=== PATIENT | female | born 1940 | race Caucasian/White ===

== ENCOUNTER 2017-10-20 10:42 | Day surgery (SDC) | payer MEDICARE, OTHER ==
[~2017-10-20 10:42] MED LIST: Lactated Ringers 1,000 ML IV SCH; Lidocaine 1%/Sod Bicarbonate in NS 8.4% 1 ML Syringe IDERM PRN; Sodium Chloride 0.9% 10 ML Syringe FLUSH PRN
--- NOTE | 2017-10-20 11:34 | PCM.PREANE ---
Preanesthetic Assessment - Anesthesia/Transfusion/Family Hx Anesthesia History: Prior Anesthesia Without Reaction Family History of Anesthesia Reaction: No Transfusion History: No Prior Transfusion(s) - Review of Systems General: No Symptoms, Other (BMI 38) Pulmonary: Other (sleep apnea with CPAP, ) Cardiovascular: Other (HTN, Increased cholesterol) Gastrointestinal: Other (GERD on meds--no current symptoms) Neurological: No Symptoms Other: Reports: Diabetes (DM II blood glucose 142 this am at 0800, increased liver enzymes) - Physical Assessment NPO Status Date: 10/20/17 NPO Status Time: 05:30 Pulse: 70 O2 Sat by Pulse Oximetry: 96 Respiratory Rate: 16 Blood Pressure: 149/65 Vital Signs: Last Vital Signs Temp 36.6 C 10/20/17 11:05 Pulse 70 10/20/17 11:05 Resp 16 10/20/17 11:05 BP 149/65 H 10/20/17 11:05 Pulse Ox 96 10/20/17 11:05 Height: 1.6 m Weight: 95.708 kg ASA Class: 3 Mental Status: Alert & Oriented x3 Airway Class: Mallampati = 2 Dentition: Reports: Normal Dentition Thyro-Mental Finger Breadths: 3 Mouth Opening Finger Breadths: 3 ROM/Head Extension: Full Lungs: Clear to Auscultation, Normal Respiratory Effort Cardiovascular: Regular Rate, Regular Rhythm - Allergies Allergies/Adverse Reactions: Allergies Allergy/AdvReac Type Severity Reaction Status Date / Time No Known Allergies Allergy Verified 10/19/17 12:38 - Blood Blood Available: No - Anesthesia Plan Pre-Op Medication Ordered: None - Acknowledgements Anesthesia Type Planned: MAC Pt an Appropriate Candidate for the Planned Anesthesia: Yes Alternatives and Risks of Anesthesia Discussed w Pt/Guardian: Yes Pt/Guardian Understands and Agrees with Anesthesia Plan: Yes PreAnesthesia Questionnaire Cardiovascular History: Reports: High Cholesterol, Hypertension Respiratory History: Reports: Sleep Apnea Gastrointestinal History: Reports: Other (See Below) Other Gastrointestinal History: ELEVATED LIVER ENZYMES Genitourinary History: Reports: None [employer] History: Reports: None Musculoskeletal History: Reports: Arthritis, Gout, Osteoarthritis Other Musculoskeletal History: AC JOINT ARTHRITIS, LEFT ROTATOR CUFF REPAIR, GENOID FRACTURE, RIGHT PATELLA PAIN, RIGHT HIP PAIN Neurological History: Reports: None Psychiatric History: Reports: None Endocrine/Metabolic History: Reports: Diabetes, Type II, Obesity/BMI 30+, Vitamin D Deficiency Hematologic History: Reports: None Immunologic History: Reports: None Oncologic (Cancer) History: Reports: None Dermatologic History: Reports: Other (See Below) Other Dermatologic History: INTERTIGO, NEVUS - Past Surgical History Head Surgeries/Procedures: Reports: None HEENT Surgical History: Reports: Tonsillectomy Cardiovascular Surgical History: Reports: None Respiratory Surgical History: Reports: None GI Surgical History: Reports: Appendectomy, Colonoscopy Female Surgical History: Reports: Hysterectomy Male Surgical History: Reports: None Endocrine Surgical History: Reports: None Neurological Surgical History: Reports: None Musculoskeletal Surgical History: Reports: Hip Replacement Oncologic Surgical History: Reports: None - SUBSTANCE USE Smoking Status *Q: Never Smoker Recreational Drug Use History: No - HOME MEDS Home Medications: Home Meds Allopurinol [Zyloprim] 100 mg PO DAILY 01/04/16 [History] Lisinopril 20 mg PO DAILY 01/04/16 [History] Simvastatin [Zocor] 20 mg PO BEDTIME 01/04/16 [History] metFORMIN [Glucophage XR] 500 mg PO DAILY 01/04/16 [History] Ascorbate Calcium [Vitamin C] 500 mg PO DAILY 10/19/17 [History] Aspirin [Adult Low Dose Aspirin EC] 81 mg PO DAILY 10/19/17 [History] Calcium Carb & Citrate/Vit D3 [Calcium + D3 ER Tablet] 1 tab PO DAILY 10/19/17 [ History] Cholecalciferol (Vitamin D3) [Vitamin D3] 1,000 units PO DAILY 10/19/17 [History ] Cinnamon Bark [Cinnamon] 500 mg PO DAILY 10/19/17 [History] Fish Oil/Borage/Flax/Om3,6,9#1 [[place] 3-6-9 1,200 mg Softgel] 1,200 mg PO DAILY 10/19/17 [History] Flaxseed Oil 1,000 mg PO DAILY 10/19/17 [History] Gluc 2KCl/Chondr/Lesa Hy/Hy Ac [Glucosamine & Chondroitin Cap] 1 cap PO DAILY [History] Multivitamin [Zoo Chews] 1 tab PO DAILY 10/19/17 [History] Omeprazole Magnesium [Prilosec Otc] 20 mg PO DAILY 10/19/17 [History] Turmeric [Curcumin] 1 gm PO DAILY 10/19/17 [History] - CURRENT (IN HOUSE) MEDS Current Meds: Current Medications Lactated Ringer's (Ringers, Lactated) 1,000 mls @ 125 mls/hr IV ASDIRECTED MACIE Stop: 10/20/17 23:00 Lidocaine/Sodium Bicarbonate (Buffered Lidocaine 1% In Ns 8.4%) 0.25 ml IDERM ONETIME PRN PRN Reason: Prior to IV Start Stop: 10/20/17 18:00 Sodium Chloride (Saline Flush) 10 ml FLUSH ASDIRECTED PRN PRN Reason: Keep Vein Open Stop: 10/20/17 18:00
[2017-10-20] MEDS ORDERED: Propofol 200 MG/20 ML SDV ONE (13:53)
[2017-10-20] MEDS ORDERED: Lactated Ringers 1,000 ML ONE (14:37)
--- NOTE | 2017-10-20 14:44 | PCM48HPAN ---
Post Anesthesia Note - EVALUATION WITHIN 48HRS OF ANESTHETIC Vital Signs in Normal Range: Yes Patient Participated in Evaluation: Yes Respiratory Function Stable: Yes Airway Patent: Yes Cardiovascular Function Stable: Yes Hydration Status Stable: Yes Pain Control Satisfactory: Yes Nausea and Vomiting Control Satisfactory: Yes Mental Status Recovered: Yes Pulse Rate: 59 SaO2: 98 Resp Rate: 16 Temperature: 37 C Blood Pressure: 143/73
--- NOTE | 2017-10-20 14:59 | PCM.OPNOTE ---
- General Post-Op/Procedure Note Date of Surgery/Procedure: 10/20/17 Operative Procedure(s): colonoscopy, screening Findings: Moderate sigmoid colon diverticulosis. No polyps. No biopsies performed. Pre Op Diagnosis: screening colonoscopy, average risk Post-Op Diagnosis: s/p colonosocopy. Moderate sigmoid colon diverticulosis Primary Surgeon: Almas Layton Anesthesia Provider: Gregoria Morgan Pathology: None Complications: None Condition: Good Free Text/Narrative:: Indications for surgery: The patient is 77 yo female, who had a few colonoscopies in the past, but the most recent one was at least 10 years ago. Patient is due for a repeat colonoscopy. The patient was consented for colonoscopy with possible biopsy. Indications, risks, and benefits were discussed with the patient in detail. Description of procedure: After surgical consent was verified, the patient was brought to the main OR. A surgical time-out was performed to verify proper patient and proper procedure. Anesthesia performed monitored anesthesia care. A digital rectal exam was performed, which was normal. The colonoscope was inserted into the anus and advanced through the colon to the cecum. Location of the cecum was confirmed by presence of the appendiceal orifice and by presence of the ileocecal valve. The scope was then withdrawn, with inspection of the colonic mucosa. Retroflexion was performed in the rectum. There was moderate sigmoid diverticulosis. The remainder of the colon and rectum was normal. Withdrawal time was 10 minutes. There was no blood loss. Prep was good. The patient tolerated the procedure well, was brought out of anesthesia, and transported to the PACU in stable condition. Almas Layton M.D., F.A.C.S. General Surgery Pager: [phone]
[2017-10-20 15:23] VITALS: BP 142/69
== END 2017-10-20 15:30 | disposition home or self-care (01) ==
LOC: JD.SDS 10:42
PROVIDERS: ATTEND Student in an Organized Health Care Education/Training Program
DX: Z12.11 Encounter for screening for malignant neoplasm of colon (principal); K57.30 Diverticulosis of large intestine without perforation or abscess without bleeding; M19.019 Primary osteoarthritis, unspecified shoulder; M10.9 Gout, unspecified; M17.11 Unilateral primary osteoarthritis, right knee; I10 Essential (primary) hypertension; K21.9 Gastro-esophageal reflux disease without esophagitis; G47.30 Sleep apnea, unspecified; E78.00 Pure hypercholesterolemia, unspecified; E83.52 Hypercalcemia; E11.9 Type 2 diabetes mellitus without complications; E56.9 Vitamin deficiency, unspecified; E66.9 Obesity, unspecified; Z68.38 Body mass index [BMI] 38.0-38.9, adult; Z99.89 Dependence on other enabling machines and devices; Z79.82 Long term (current) use of aspirin; Z79.84 Long term (current) use of oral hypoglycemic drugs; Z79.899 Other long term (current) drug therapy
CPT/HCPCS: 93005; G0121; J2704; J7120; 00811

== ENCOUNTER 2023-04-07 02:42 | Emergency (ER) | payer MEDICARE, OTHER ==
[2023-04-07] MEDS: Sodium Chloride 0.9% 10 ML Syringe FLUSH PRN (03:08)
[2023-04-07 03:11] LABS: BASOPHILS ABSOLUTE AUTO 0.1 K/mm3 (0.0-0.2); BASOPHILS PERCENT AUTO 0.7 % (0.0-1.0); EOSINOPHILS ABSOLUTE AUTO 0.1 K/mm3 (0.0-0.4); EOSINOPHILS PERCENT AUTO 1.2 % (0.0-6.0); HEMATOCRIT 37.9 % (37.0-47.0); HEMOGLOBIN 12.7 gm/dl (12.0-16.0); IMMATURE GRAN ABSOLUTE AUTO 0.03 K/mm3 (0.00-0.05); IMMATURE GRAN PERCENT AUTO 0.4 % (0.0-0.4); LYMPHOCYTES ABSOLUTE AUTO 3.1 K/mm3 (1.0-4.8); LYMPHOCYTES PERCENT AUTO 42.1 % (24.0-44.0); MEAN CORPUSCULAR HEMOGLOBIN 31.4 pg (28.0-32.0); MEAN CORPUSCULAR HGB CONC 33.5 g/dl (32.0-36.0); MEAN CORPUSCULAR VOLUME 93.6 fl (83.0-99.0); MEAN PLATELET VOLUME 9.7 fl (9.4-12.3); MONOCYTES ABSOLUTE AUTO 0.5 K/mm3 (0.0-0.8); MONOCYTES PERCENT AUTO 7.3 % (0.0-8.0); NEUTROPHILS ABSOLUTE AUTO 3.6 K/mm3 (1.8-7.7); NEUTROPHILS PERCENT AUTO 48.3 % (41.0-71.0); PLATELET COUNT,PLT 304 K/mm3 (150-400); RED BLOOD CELL COUNT 4.05 M/mm3 (4.10-5.30); WHITE BLOOD CELL COUNT,WBC 7.36 K/mm3 (3.9-11.3)
[2023-04-07] MEDS: Aspirin 81 MG Tab.Chew PO ONE (03:12)
[2023-04-07 03:29] LABS: INR 1.03
[2023-04-07 03:30] LABS: D-DIMER QUANTITATIVE 0.2 mg/L (0.19-0.50)
[2023-04-07 03:46] LABS: ALBUMIN 3.5 g/dl (3.4-5.0); BILIRUBIN TOTAL 0.6 mg/dL (0.2-1.0); BUN/CREATININE RATIO 20.8 (14-18); CALCIUM 10.2 mg/dL (8.5-10.1); CREATININE 1.3 mg/dL (0.55-1.02); EST CRCL DRUG DOSING (CG) 27.12 mL/min; MAGNESIUM 1.5 mg/dL (1.8-2.4); PROTEIN TOTAL,TP 7.2 g/dl (6.4-8.2)
[2023-04-07 06:18] VITALS: BP 128/65; PULSE 78
== END 2023-04-07 06:17 | disposition home or self-care (01) ==
LOC: JD.ED 02:42
DX: R07.2 Precordial pain (principal); E83.42 Hypomagnesemia; E78.00 Pure hypercholesterolemia, unspecified; I10 Essential (primary) hypertension; E11.9 Type 2 diabetes mellitus without complications; Z86.16 Personal history of COVID-19; Z79.82 Long term (current) use of aspirin; Z79.84 Long term (current) use of oral hypoglycemic drugs; Z79.899 Other long term (current) drug therapy
CPT/HCPCS: 36415; 71045; 80053; 83690; 83735; 84484; 85025; 85379; 85610; 93005; 96365; 99285; A9270; J3475; J3490